=== PATIENT | male | born 1955 | race Caucasian/White ===

== ENCOUNTER 2018-09-23 11:16 | Inpatient (IN) | payer SELFPAY ==
[~2018-09-23] VITALS: Ht 162.6 cm; Wt 67.3 kg
--- NOTE | 2018-09-23 12:49 | ERD ---
ER Documentation Chief Complaint Chief Complaint dizziness HPI The patient is a 62-year-old male, presenting to the ER because of acute dizziness for 1 day, denies similar symptoms previously, complains of vague headache, denies ear pain, facial pain, sore throat, cough, neck pain, chest pain, dyspnea. He complains of nausea but no vomiting, denies abdominal pain, dysuria, diarrhea. He complains of general body spasm for the last 2 weeks after he started taking a supplement [id number]. He does not smoke, drinks socially, has increased stress in his life Past medical history: Hypertension, chronic right knee, history of head trauma Past surgical history: Right elbow arthroscopy ROS All systems reviewed and are negative except as per history of present illness. Medications Home Meds Reported Medications Losartan-Hydrochlorothiazide (Losartan-HCTZ) 100-12.5 Mg Tab, 1 TAB PO DAILY, TAB 09/23/18 Allergies Allergies: Coded Allergies: lisinopril (Unverified Allergy, Unknown, 09/23/18) Physical Exam Vitals Vital Signs Date Temp Pulse Resp B/P (MAP) Pulse Ox O2 O2 Flow FiO2 Time Delivery Rate 09/23/18 98.0 73 18 153/97 98 Room Air 13:59 (115) 09/23/18 98.0 64 18 136/96 98 11:39 (109) Physical Exam Const: No acute distress. Head: Atraumatic. Eyes: Normal Conjunctiva. ENT: Normal External Ears, Nose and Mouth. Neck: Full range of motion. No meningismus. Resp: Clear to auscultation bilaterally. Cardio: Regular rate and rhythm. Abd: Soft, non distended, normal bowel sounds, non tender. Skin: No petechiae or rashes. Back: No midline or flank tenderness. Ext: No cyanosis, or edema. Neur: Awake and alert. No focal deficit Psych: Normal Mood and Affect. Result Diagram: 09/23/18 1314 09/23/18 1314 Results 24 hrs Laboratory Tests Test 09/23/18 13:14 White Blood Count 6.2 10^3/ul Red Blood Count 5.17 10^6/ul Hemoglobin 14.8 g/dl Hematocrit 42.2 % Mean Corpuscular Volume 81.6 fl Mean Corpuscular Hemoglobin 28.6 pg Mean Corpuscular Hemoglobin Concent 35.1 g/dl Red Cell Distribution Width 11.9 % Platelet Count 253 10^3/UL Mean Platelet Volume 8.3 fl Immature Granulocytes % 0.300 % Neutrophils % 73.7 % Lymphocytes % 16.4 % Monocytes % 6.9 % Eosinophils % 2.1 % Basophils % 0.6 % Nucleated Red Blood Cells % 0.0 /100WBC Immature Granulocytes # 0.020 10^3/ul Neutrophils # 4.6 10^3/ul Lymphocytes # 1.0 10^3/ul Monocytes # 0.4 10^3/ul Eosinophils # 0.1 10^3/ul Basophils # 0.0 10^3/ul Nucleated Red Blood Cells # 0.0 10^3/ul Sodium Level 123 mmol/L Potassium Level 3.9 mmol/L Chloride Level 85 mmol/L Carbon Dioxide Level 24 mmol/L Anion Gap 14 Blood Urea Nitrogen 13 mg/dl Creatinine 0.87 mg/dl Est Glomerular Filtrat Rate mL/min > 60 mL/min Glucose Level 120 mg/dl Calcium Level 9.0 mg/dl Total Bilirubin 0.9 mg/dl Direct Bilirubin 0.00 mg/dl Indirect Bilirubin 0.9 mg/dl Aspartate Amino Transf (AST/SGOT) 119 IU/L Alanine Aminotransferase (ALT/SGPT) 61 IU/L Alkaline Phosphatase 76 IU/L Creatine Kinase Pending Troponin I < 0.012 ng/ml Total Protein 8.1 g/dl Albumin 4.6 g/dl Globulin 3.50 g/dl Albumin/Globulin Ratio 1.31 Current Medications Medications Dose Sig/José Miguel Start Time Status Last (Trade) Ordered Route PRN Stop Time Admin Dose Reason Admin Meclizine 25 mg ONCE ONCE 09/23/18 DC 09/23/18 HCl PO 13:00 13:08 (Antivert) 09/23/18 13:01 Ondansetron 4 mg ONCE STAT 09/23/18 DC 09/23/18 HCl (Zofran IV 12:59 13:08 Inj) 09/23/18 13:00 Ketorolac 30 mg ONCE STAT 09/23/18 DC Tromethamine IV 14:35 (Toradol) 09/23/18 14:36 Sodium 1,000 ml @ Q1H ONCE 09/23/18 Chloride 1,000 mls/hr IV 15:00 09/23/18 15:59 Procedures/[place] [id number] Radiology Main Line: [phone] DIAGNOSTIC IMAGING REPORT Patient: VIRGIL BRISENO : 1955 Age: 62 Sex: M MR #: [id number] DOS: 09/23/18 1258 Ordering MD: KASEY DONAHUE MD Location: E/R Room/Bed: PROCEDURE: CT brain without contrast CLINICAL INDICATION: Syncope TECHNIQUE: CT of the brain without contrast was performed on a multidetector CT scanner, with multiplanar reformats. One or more of the following dose reduction techniques were used: Automated exposure control, adjustment in mA and / or kV according to patient size, use of iterative reconstructive technique. CTDIvol = 38 mGy; DLP = 634 mGy-cm. DICOM images are available. COMPARISON: None available FINDINGS: No acute intracranial hemorrhage is identified. No extra-axial fluid collection is seen. There is no mass effect. No midline shift is identified. There is a small area of encephalomalacia at the left temporal lobe which may be a chronic infarct or post-traumatic. There is mild ex vacuo dilation of the adjacent left temporal horn. Otherwise gonsales-white junctions appear preserved. Calvarium and skull base are intact. Partial bilateral frontal, bilateral ethmoid and partial bilateral sphenoid sinus opacification are seen. IMPRESSION: 1. No evidence of acute intracranial pathology. 2. 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 RPTAT: VV .Paul Padron MD, MD Date Time Electronically viewed and signed by .Paul Pardon MD, on 09/23/2018 13:44 .O/ CC: KASEY DONAHUE MD [id number] EKG: Read by emergency physician Rate/Rhythm: Normal Sinus Rhythm 61 beats/min QRS, ST, T-waves: No ST elevation, no T inversion Impression: Normal EKG MEDICAL MAKING DECISION: The patient is a 62-year-old male, presenting with acute dizziness, most likely due to acute hyponatremia. He was treated with Antivert 25 mg p.o. for acute dizziness, Zofran 4 mg IV for nausea and Toradol 30 mg IV for his musculoskeletal pain with good response The differential diagnoses considered include but are not limited to polydipsia, SIADH, hypothyroidism, central causes such as cerebellar infarct, cerebellar hemorrhage, cerebellar tumor, acoustic neuroma, peripheral causes such as benign positional vertigo, labyrinthitis, medication, Meniere's disease. Departure Diagnosis: Primary Impression: Dizziness Additional Impression: Hyponatremia Condition: Stable Comments I discussed the findings with the patient. I discussed the patient with Dr. Brito at 2:40 PM , who was made aware of the lab, the treatment, the patient condition. The patient is admitted to Tel observation Disclaimer: Inadvertent spelling and grammatical errors are likely due to EHR/dictation software use and do not reflect on the overall quality of patient care. Also, please note that the electronic time recorded on this note does not necessarily reflect the actual time of the patient encounter. KASEY DONAHUE MD Sep 23, 2018 12:49
[2018-09-23] MEDS ORDERED: ONDANSETRON 4 MG INJ IV STA (12:59)
[2018-09-23] MEDS ORDERED: MECLIZINE 12.5 MG TAB PO ONE (13:00)
[2018-09-23] MEDS ORDERED: LOSA1TAB28 PO (14:07)
[2018-09-23] MEDS ORDERED: KETOROLAC 30 MG INJ IV STA (14:35)
[2018-09-23] MEDS ORDERED: SOD CHLORIDE 0.9% 1,000 ML IV ONE (15:00)
--- NOTE | 2018-09-23 15:58 | HP ---
Date/Time of Note Date/Time of Note DATE: 09/23/18 TIME: 15:54 Assessment/Plan VTE Prophylaxis SCD applied (from Nsg): Yes Pharmacological prophylaxis: heparin Lines/Catheters IV Catheter Type (from Nrsg): Saline Lock Assessment/Plan Hospital Course 62 yo male with muscle aches and dizziness. Found to have hyponatremia Hyponatremia: - Highly suspect HCTZ effect. I counseled him to hold this permanently - SIADH is possible, await urine studies - He is euvolemic clinically, I doubt this is from hypovolemia - Give 1 L NS now - Serial BMP to ensure not overrapid correction Hypertension: - Advised to hold meds and see his doctor when stable Result Diagram: 09/23/18 1314 09/23/18 1314 Results 24hrs Laboratory Tests Test 09/23/18 13:14 White Blood Count 6.2 Red Blood Count 5.17 Hemoglobin 14.8 Hematocrit 42.2 Mean Corpuscular Volume 81.6 L Mean Corpuscular Hemoglobin 28.6 L Mean Corpuscular Hemoglobin Concent 35.1 Red Cell Distribution Width 11.9 Platelet Count 253 Mean Platelet Volume 8.3 Immature Granulocytes % 0.300 Neutrophils % 73.7 Lymphocytes % 16.4 Monocytes % 6.9 Eosinophils % 2.1 Basophils % 0.6 Nucleated Red Blood Cells % 0.0 Immature Granulocytes # 0.020 Neutrophils # 4.6 Lymphocytes # 1.0 Monocytes # 0.4 Eosinophils # 0.1 Basophils # 0.0 Nucleated Red Blood Cells # 0.0 Sodium Level 123 L Potassium Level 3.9 Chloride Level 85 L Carbon Dioxide Level 24 Anion Gap 14 H Blood Urea Nitrogen 13 Creatinine 0.87 Est Glomerular Filtrat Rate mL/min > 60 Glucose Level 120 Calcium Level 9.0 Total Bilirubin 0.9 Direct Bilirubin 0.00 Indirect Bilirubin 0.9 Aspartate Amino Transf (AST/SGOT) 119 H Alanine Aminotransferase (ALT/SGPT) 61 Alkaline Phosphatase 76 Creatine Kinase 5664 H Troponin I < 0.012 Total Protein 8.1 Albumin 4.6 Globulin 3.50 H Albumin/Globulin Ratio 1.31 HPI/ROS Admit Date/Time Admit Date/Time Hx of Present Illness 62 yo male with h/o hypertension presented with muscle aches and dizziness Patient describes muscle aches and spasms over previous weeks. Has been drinking lots of water thinking he is dehydrated. Over past days symptoms worsened and he has become dizzy prompting ED visit Here, found to have hyponatremia. He has been taking losartan/HCTZ for past 1 year He is very hesitant to be hospitalized given lack of insurance and financial counselor has quoted extremely high hospital cost for him ROS Constitutional: no complaints, improved Eyes: no complaints ENT: no complaints Respiratory: no complaints Cardiovascular: no complaints Gastrointestinal: no complaints Genitourinary: no complaints Musculoskeletal: no complaints Skin: no complaints Neurologic: no complaints Endocrine: no complaints Lymphatic: no complaints Psychological: no complaints, nl mood/affect Immunologic: no complaints PMH/Family/Social Past Medical History Medical History: hypertension Medications Current Medications Sodium Chloride 1,000 ml @ 1,000 mls/hr Q1H ONCE IV Last administered on 09/23/18at 15:49; Admin Dose 1,000 MLS/HR; Start 09/23/18 at 15:00; Stop 09/23/18 at 15:59 Coded Allergies: lisinopril (Unverified Allergy, Unknown, 09/23/18) Past Surgical History Past Surgical Hx: no surgical history, noncontributory Family History Significant Family History: no pertinent family hx Social History Alcohol Use: none Smoking Status: Former smoker Drug Use: none Exam/Review of Systems Vital Signs Vitals Vital Signs Date Temp Pulse Resp B/P (MAP) Pulse Ox O2 O2 Flow FiO2 Time Delivery Rate 09/23/18 98.0 73 18 153/97 98 Room Air 13:59 (115) Exam Constitutional: alert, oriented, well developed Psych: no complaints, nl mood/affect Head: normocephalic, atraumatic Eyes: nl conjunctiva, EOMI, nl lids, nl sclera, PERRL ENMT: nl external ears & nose, nl lips & teeth, nl nasal mucosa & septum Neck: supple, non-tender Respiratory: clear to auscultation, normal air movement Cardiovascular: regular rate and rhythm, nl pulses Gastrointestinal: soft, nl liver, spleen, non-tender Musculoskeletal: nl extremities to inspection Extremities: normal pulses Neurological: SHEET METAL INSULATOR II-XII intact, nl mental status, nl speech, nl strength Skin: nl turgor; No rash or lesions Lymph: nl lymph nodes KARLIE PRICE MD Sep 23, 2018 15:58
[2018-09-24] MEDS ORDERED: SOD CHLORIDE 0.9% 1,000 ML IV ONE (09:00)
[2018-09-24 11:10] VITALS: Ht 162.6 cm; Wt 67.3 kg
[2018-09-24 11:30] VITALS: BP 128/88; PULSE 59; RESP 17
--- NOTE | 2018-09-24 12:47 | PDOCDIS ---
Discharge Instructions DIAGNOSIS Discharge Diagnosis Hyponatremia Rhabdomyolysis CONDITION [id number] Patient Condition: [id number] Stable FOLLOW UP/APPOINTMENTS Follow-up Plan Never take HCTZ (hydrochlorothiazide) ever again in your life I believe it is safe for you to stop taking blood pressure medications completely at this point because your blood pressure is low if anything Return to the hospital if you have any concerning symptoms It is vital for you to get your blood work checked in the next couple days Dont' drink more than 1 L of liquids a day for the next few days KARLIE PRICE MD Sep 24, 2018 12:47
--- NOTE | 2018-09-24 13:01 | DS ---
Date/Time of Note Date/Time of Note DATE: 09/24/18 TIME: 12:47 Discharge Summary Admission/Discharge Info Admit Date/Time Sep 24, 2018 at 08:43 Discharge Date/Time Discharge Diagnosis Hyponatremia Rhabdomyolysis Patient Condition: Stable Hx of Present Illness 62 yo male with h/o hypertension presented with muscle aches and dizziness Patient describes muscle aches and spasms over previous weeks. Has been drinking lots of water thinking he is dehydrated. Over past days symptoms worsened and he has become dizzy prompting ED visit Here, found to have hyponatremia. He has been taking losartan/HCTZ for past 1 year He is very hesitant to be hospitalized given lack of insurance and financial counselor has quoted extremely high hospital cost for him Hospital Course 62 yo male with muscle aches and dizziness. Found to have hyponatremia and rhabdomyolysis His hyponatremia was a result of taking HCTZ as suggested by his clinical history and urine studies. I advised him to never take this medication again. His BP was on the low to normal side and does not warrant therapy regardless at this time He had an elevated CK level to 5000. He was given isotonic saline. His CK level improved. TSH was normal. Cortisol level was appropriate. With FW restriction and NS infusion his sodium level improved from 123 to 126. I suggested the patient stay in the hospital until his sodium levels normalize. However he is very worried about the financial amos of this admission because he is uninsured. He is aware of the risks of early discharge including seizure, imbalance, falls, even and he accepts these risks. He will have is BMP checked within the next couple days and seek further care if not improved or if his symptoms worsen Home Meds Reported Medications Losartan-Hydrochlorothiazide (Losartan-HCTZ) 100-12.5 Mg Tab, 1 TAB PO DAILY, TAB 09/23/18 Follow-up Plan Never take HCTZ (hydrochlorothiazide) ever again in your life I believe it is safe for you to stop taking blood pressure medications completely at this point because your blood pressure is low if anything Return to the hospital if you have any concerning symptoms It is vital for you to get your blood work checked in the next couple days Dont' drink more than 1 L of liquids a day for the next few days Primary Care Provider Care Physician No Primary Pending Labs Laboratory Tests Test 09/23/18 13:14 09/23/18 15:40 09/23/18 17:40 09/24/18 05:33 White Blood 6.2 Count 10^3/ul (4.8-10 .8) Red Blood 5.17 Count 10^6/ul (4.70-6 .10) Hemoglobin 14.8 g/dl (14.0-18.0 ) Hematocrit 42.2 % (42.0-52.0) Mean 81.6 Corpuscular fl (82.0-101.0) Volume Mean 28.6 Corpuscular pg (29.0-33.0) Hemoglobin Mean 35.1 Corpuscular g/dl (32.0-37.0 Hemoglobin Conc ) ent Red Cell 11.9 Distribution % (11.5-14.5) Width Platelet Count 253 10^3/UL (140-41 5) Mean Platelet 8.3 Volume fl (7.4-10.4) Immature 0.300 Granulocytes % % (0.001-0.429) Neutrophils % 73.7 % (39.0-77.0) Lymphocytes % 16.4 % (15.0-51.0) Monocytes % 6.9 % (0.0-11.0) Eosinophils % 2.1 % (0.0-7.0) Basophils % 0.6 % (0.0-2.0) Nucleated Red 0.0 Blood Cells % /100WBC (0.0-0. 0) Immature 0.020 Granulocytes # 10^3/ul (0.0-0. 031) Neutrophils # 4.6 10^3/ul (1.6-7. 5) Lymphocytes # 1.0 10^3/ul (0.8-2. 9) Monocytes # 0.4 10^3/ul (0.3-0. 9) Eosinophils # 0.1 10^3/ul (0.0-0. 5) Basophils # 0.0 10^3/ul (0.0-0. 1) Nucleated Red 0.0 Blood Cells # 10^3/ul (0.0-0. 0) Sodium Level 123 123 126 mmol/L (135-144 mmol/L (135-14 mmol/L (135-14 ) 4) 4) Potassium 3.9 3.9 4.2 Level mmol/L (3.5-5.1 mmol/L (3.5-5. mmol/L (3.5-5. ) 1) 1) Chloride Level 85 85 94 mmol/L (97-110) mmol/L (97-110 mmol/L (97-110 ) ) Carbon Dioxide 24 26 24 Level mmol/L (21-31) mmol/L (21-31) mmol/L (21-31) Anion Gap 14 (5-13) 12 (5-13) 8 (5-13) Blood Urea 13 mg/dl (7-20) 12 13 Nitrogen mg/dl (7-20) mg/dl (7-20) Creatinine 0.87 0.95 0.93 mg/dl (0.61-1.2 mg/dl (0.61-1. mg/dl (0.61-1. 4) 24) 24) Est Glomerular > 60 > 60 > 60 Filtrat mL/min (>60) mL/min (>60) mL/min (>60) Rate mL/min Glucose Level 120 105 98 mg/dl (70-220) mg/dl (70-220) mg/dl (70-220) Calcium Level 9.0 9.0 8.7 mg/dl (8.4-10.2 mg/dl (8.4-10. mg/dl (8.4-10. ) 2) 2) Total 0.9 Bilirubin mg/dl (0.2-1.3) Direct 0.00 Bilirubin mg/dl (0.00-0.2 0) Indirect 0.9 Bilirubin mg/dl (0-1.1) Aspartate Amino 119 Transf (AST/SGO IU/L (15-46) T) Alanine 61 IU/L (13-69) Aminotransferas e (ALT/SGPT) Alkaline 76 Phosphatase IU/L (42-121) Creatine 5664 2886 Kinase IU/L (23-200) IU/L (23-200) Troponin I < 0.012 ng/ml (0.000-0. 120) Total Protein 8.1 g/dl (6.1-8.1) Albumin 4.6 g/dl (3.3-4.9) Globulin 3.50 g/dl (1.3-3.2) Albumin/Globuli 1.31 n Ratio Thyroid 0.781 Stimulating MIU/L (0.465-4. Hormone (TSH) 680) Urine Color STRAW (YELLOW) Urine Clarity CLEAR (CLEAR) Urine pH 8.0 (5.0-9.0) Urine Specific 1.006 (1.003-1 [place] .030) Urine Ketones NEGATIVE mg/dL (NEGATIV E) Urine Nitrite NEGATIVE mg/dL (NEGATIV E) Urine NEGATIVE Bilirubin mg/dL (NEGATIV E) Urine NEGATIVE Urobilinogen mg/dL (NEGATIV E) Urine Leukocyte NEGATIVE Ria/u Esterase l Urine NEGATIVE Hemoglobin mg/dL (NEGATIV E) Urine 294 Osmolality mOsm/kg (250-1 200) Urine Random 89 Sodium mmol/L (30-90) Urine Glucose NEGATIVE mg/dL (NEGATIV E) Urine Total NEGATIVE Protein mg/dl (NEGATIV E) Random Cortisol 6.3 ug/dl KARLIE PRICE MD Sep 24, 2018 13:01
== END 2018-09-24 15:25 | disposition home or self-care (01) | DRG 641 ==
LOC: E/R 11:16 → SUATTDRO 14:48 → 2NE 09-24 08:43 → EDBEDREQSVC 09-24 09:02 → EDBEDREQ 09-24 10:27
PROVIDERS: ADMIT Internal Medicine; ATTEND Internal Medicine
DX: E87.1 Hypo-osmolality and hyponatremia (principal); M62.82 Rhabdomyolysis; I10 Essential (primary) hypertension; E86.0 Dehydration
CPT/HCPCS: 36415; 70450; 80048; 80053; 81003; 82533; 82550; 83935; 84300; 84443; 84484; 85025; 93005; 96374; J1885; J2405; J7030

== ENCOUNTER 2018-09-27 08:46 | Emergency (ER) | payer SELFPAY ==
[~2018-09-27] VITALS: Ht 165.1 cm; Wt 62.6 kg
[2018-09-27 08:47] VITALS: BP 136/89; PULSE 70; RESP 19; Ht 165.1 cm; Wt 62.6 kg
--- NOTE | 2018-09-29 04:52 | ERD ---
ER Documentation Chief Complaint Chief Complaint sent by PCP for F/U blood draw HPI 62-year-old male with history of hyponatremia presents with request for CMP test to check sodium levels, requested by Dr. Brito. Patient is asymptomatic at this time. He was recently admitted for hyponatremia and this is why he would like the CMP checked. ROS All systems reviewed and are negative except as per history of present illness. Medications Home Meds Discontinued Reported Medications Losartan-Hydrochlorothiazide (Losartan-HCTZ) 100-12.5 Mg Tab, 1 TAB PO DAILY, TAB 09/23/18 Allergies Allergies: Coded Allergies: lisinopril (Verified Allergy, Unknown, 09/24/18) PMhx/Soc History of Surgery: No Anesthesia Reaction: No Hx Neurological Disorder: No Hx Respiratory Disorders: Yes (Hemothorax, chest tube) Hx Cardiac Disorders: Yes (HTN) Hx Psychiatric Problems: No Hx Miscellaneous Medical Probl: No Hx Alcohol Use: No Hx Substance Use: No Hx Tobacco Use: Yes Smoking Status: Current every day smoker FmHx Family History: No diabetes Physical Exam Vitals Vital Signs Date Temp Pulse Resp B/P (MAP) Pulse Ox O2 O2 Flow FiO2 Time Delivery Rate 09/27/18 98.0 70 19 136/89 99 08:47 (105) Physical Exam Const: No acute distress Head: Atraumatic Eyes: Normal Conjunctiva ENT: Normal External Ears, Nose and Mouth. Neck: Full range of motion. No meningismus. Resp: Clear to auscultation bilaterally Cardio: Regular rate and rhythm, no murmurs Skin: No petechiae or rashes Ext: No cyanosis, or edema Neur: Awake and alert Psych: Normal Mood and Affect Result Diagram: 09/27/18 0909/27/18 0907 Results 24 hrs Laboratory Tests Test 09/27/18 09:07 White Blood Count 6.3 10^3/ul Red Blood Count 5.15 10^6/ul Hemoglobin 14.8 g/dl Hematocrit 44.0 % Mean Corpuscular Volume 85.4 fl Mean Corpuscular Hemoglobin 28.7 pg Mean Corpuscular Hemoglobin Concent 33.6 g/dl Red Cell Distribution Width 12.8 % Platelet Count 286 10^3/UL Mean Platelet Volume 8.3 fl Immature Granulocytes % 0.200 % Neutrophils % 68.1 % Lymphocytes % 19.4 % Monocytes % 5.5 % Eosinophils % 5.4 % Basophils % 1.4 % Nucleated Red Blood Cells % 0.0 /100WBC Immature Granulocytes # 0.010 10^3/ul Neutrophils # 4.3 10^3/ul Lymphocytes # 1.2 10^3/ul Monocytes # 0.4 10^3/ul Eosinophils # 0.3 10^3/ul Basophils # 0.1 10^3/ul Nucleated Red Blood Cells # 0.0 10^3/ul Sodium Level 144 mmol/L Potassium Level 4.6 mmol/L Chloride Level 108 mmol/L Carbon Dioxide Level 27 mmol/L Anion Gap 9 Blood Urea Nitrogen 29 mg/dl Creatinine 1.06 mg/dl Est Glomerular Filtrat Rate mL/min > 60 mL/min Glucose Level 101 mg/dl Calcium Level 9.4 mg/dl Total Bilirubin 0.5 mg/dl Direct Bilirubin 0.00 mg/dl Indirect Bilirubin 0.5 mg/dl Aspartate Amino Transf (AST/SGOT) 56 IU/L Alanine Aminotransferase (ALT/SGPT) 58 IU/L Alkaline Phosphatase 67 IU/L Total Protein 8.1 g/dl Albumin 4.5 g/dl Globulin 3.60 g/dl Albumin/Globulin Ratio 1.25 Procedures/MDM 62-year-old male is presenting for CMP test to check sodium levels as he was r ecently admitted for hyponatremia. He is currently asymptomatic with no complaints. Sodium levels were within normal limits today. He will be discharged home in stable condition and advised to return for any new or worsening or concerning symptoms. Patient understands and agrees with plan for discharge and he understands return precautions. Departure Diagnosis: Primary Impression: Encounter for laboratory test Condition: Fair Patient Instructions: Sodium (Blood) Referrals: [facility] YOU HAVE RECEIVED A MEDICAL SCREENING EXAM AND THE RESULTS INDICATE THAT YOU DO NOT HAVE A CONDITION THAT REQUIRES URGENT TREATMENT IN THE EMERGENCY DEPARTMENT. FURTHER EVALUATION AND TREATMENT OF YOUR CONDITION CAN WAIT UNTIL YOU ARE SEEN IN YOUR DOCTORS OFFICE WITHIN THE NEXT 1-2 DAYS. IT IS YOUR RESPONSIBILITY TO MAKE AN APPOINTMENT FOR FOLOW-UP CARE. IF YOU HAVE A PRIMARY DOCTOR --you should call your primary doctor and schedule an appointment IF YOU DO NOT HAVE A PRIMARY DOCTOR YOU CAN CALL OUR PHYSICIAN REFERRAL HOTLINE AT IF YOU CAN NOT AFFORD TO SEE A PHYSICIAN YOU CAN CHOSE FROM THE FOLLOWING [facility] [address] [facility] [address] [facility] [address] [facility] [address] [facility] [address] [facility]. [facility] [address] Additional Instructions: Call your primary care doctor TOMORROW for an appointment during the next 1-2 days.See the doctor sooner or return here if your condition worsens before your appointment time. LEONELA JARA PA-C Sep 29, 2018 04:52
== END 2018-09-27 10:16 | disposition home or self-care (01) ==
LOC: FTE 08:46
DX: Z00.00 Encounter for general adult medical examination without abnormal findings (principal); I10 Essential (primary) hypertension; F17.210 Nicotine dependence, cigarettes, uncomplicated
CPT/HCPCS: 80053; 85025; 99283